=== PATIENT | female | born 1950 | race Caucasian/White ===

== ENCOUNTER → 2016-12-21 | Outpatient (CLI) | payer MEDICARE, BC ==
[2016-12-21 13:16] LABS: BASO % 0.7 %; BASO ABS # 0.07 K/uL (0-0.2); COMPLETE YES; HEMATOCRIT 39.3 % (37-47); IG% 0.2 %; LYMPH % 28.5 %; LYMPH ABS # 2.91 K/uL (1.2-3.4); MEAN CELL VOLUME 92.3 fL (80-100); MEAN CORPUSCULAR HEMOGLOBIN 30.8 pg (25-34); MEAN CORPUSCULAR HGB CONC 33.3 g/dl (32-36); MEAN PLATELET VOLUME 11.5 fL (7.4-10.4); NEUT % 61.6 %; PLATELET COUNT 297 K/uL (130-400); RED BLOOD COUNT 4.26 M/uL (4.2-5.4); WHITE BLOOD COUNT 10.21 K/uL (4.8-10.8)
[2016-12-21 15:07] LABS: ALT/SGPT 31 U/L (12-78); BLOOD UREA NITROGEN 10 mg/dl (7-18); BUN/CREATININE RATIO 13.3 (10-20); CALCIUM 9.1 mg/dl (8.5-10.1); CARBON DIOXIDE 27 mmol/L (21-32); CHLORIDE 103 mmol/L (98-107); CREATININE 0.72 mg/dl (0.60-1.20); GLUCOSE 113 mg/dl (70-99); POTASSIUM 4.3 mmol/L (3.5-5.1); SODIUM 139 mmol/L (136-145)
[2016-12-21 15:24] LABS: ALB/GLOB RATIO 1.1 (0.9-2); ALKALINE PHOSPHATASE 99 U/L (45-117); AST/SGOT 11 U/L (15-37); CHOLESTEROL 136 mg/dl (0-200); HDL CHOLESTEROL 46 mg/dl; LDL CHOLESTEROL CALCULATED 60 mg/dl; TRIGLYCERIDES 152 mg/dl (0-150); VERY LOW DENSITY LIPOPROT CALC 30 mg/dl
== END | disposition home or self-care (01) ==
LOC: C.LAB 08:00
PROVIDERS: ATTEND Family Medicine
DX: I10 Essential (primary) hypertension (principal); E78.5 Hyperlipidemia, unspecified

== ENCOUNTER → 2017-12-07 | Outpatient (CLI) | payer MEDICARE ==
[2017-12-07 12:42] LABS: BASO % 0.9 %; BASO ABS # 0.09 K/uL (0-0.2); EOS % 2.1 %; EOS ABS # 0.21 K/uL (0-0.5); HEMATOCRIT 39.1 % (37-47); HEMOGLOBIN 12.9 g/dL (12.0-16.0); IG# 0.03 K/uL (0.00-0.02); LYMPH % 24.3 %; LYMPH ABS # 2.48 K/uL (1.2-3.4); MEAN CELL VOLUME 93.3 fL (80-100); MEAN CORPUSCULAR HEMOGLOBIN 30.8 pg (25-34); MEAN PLATELET VOLUME 11.4 fL (7.4-10.4); MONO % 6.2 %; MONO ABS # 0.63 K/uL (0.11-0.59); NEUT % 66.2 %; NEUT ABS # 6.77 K/uL (1.4-6.5); PLATELET COUNT 327 K/uL (130-400); RED CELL DISTRIBUTION WIDTH CV 13.7 % (11.5-14.5); RED CELL DISTRIBUTION WIDTH SD 46.5 fL (36.4-46.3); WHITE BLOOD COUNT 10.21 K/uL (4.8-10.8)
[2017-12-07 13:34] LABS: ALBUMIN 3.9 gm/dl (3.4-5.0); ALT/SGPT 28 U/L (12-78); AST/SGOT 16 U/L (15-37); BLOOD UREA NITROGEN 12 mg/dl (7-18); CALCIUM 9.1 mg/dl (8.5-10.1); CARBON DIOXIDE 27 mmol/L (21-32); CHOLESTEROL 138 mg/dl (0-200); GLUCOSE 110 mg/dl (70-99); POTASSIUM 4.1 mmol/L (3.5-5.1); SODIUM 136 mmol/L (136-145)
[2017-12-07 13:44] LABS: ALKALINE PHOSPHATASE 102 U/L (45-117); LDL CHOLESTEROL CALCULATED 65 mg/dl; TOTAL PROTEIN 8.1 gm/dl (6.4-8.2)
== END | disposition home or self-care (01) ==
LOC: C.LABMFLN 09:26
PROVIDERS: ATTEND Family Medicine
DX: I10 Essential (primary) hypertension (principal); E78.5 Hyperlipidemia, unspecified